=== PATIENT | female | born 1990 | race African-American/Black ===

== ENCOUNTER 2017-04-20 16:34 | Emergency (ER) | END 2017-04-20 17:10 | disposition left against medical advice (07) ==

== ENCOUNTER 2018-07-29 11:39 | Emergency (ER) | payer OTHER ==
[~2018-07-29] VITALS: Wt 90.0 kg
[2018-07-29] MEDS ORDERED: SOD CHLORIDE 0.9% 1,000 ML IV STA (12:13)
[2018-07-29] MEDS ORDERED: LORAZEPAM 2 MG INJ IV ONE (12:30)
[2018-07-29 15:12] VITALS: BP 113/67; PULSE 97; RESP 20
--- NOTE | 2018-07-29 15:24 | ERD ---
ER Documentation Chief Complaint Chief Complaint SOB,NOT ABLE TO WALK,SHAKING, REPORTED FF MEDS X 5 DAYS HPI Patient is a 27-year-old female with depression who presents with "a breakout on her whole body". The patient is stuttering and is difficult to understand. Please note the history and physical exam is limited secondary to the patient's anxiety. Upon review of old medical records the patient one previous visit to the ER in March of last year. Review of the emergency department information exchange system shows visits to 4 separate emergency departments for a total of 9 visits over the past 1 year. She does have a primary doctor. Patient reports methamphetamine use 4 days ago. ROS All systems reviewed and are negative except as per history of present illness. Allergies Allergies: Coded Allergies: No Known Allergy (Unverified , 04/20/17) PMhx/Soc Medical and Surgical Hx: pt denies Surgical Hx History of Surgery: No Anesthesia Reaction: No Hx Neurological Disorder: Yes (epilepsy) Hx Respiratory Disorders: No Hx Cardiac Disorders: No Hx Psychiatric Problems: No Hx Miscellaneous Medical Probl: No Hx Alcohol Use: Yes (12+ shots last night) Hx Substance Use: Yes (meth) Hx Tobacco Use: Yes (1 1/2 pk daily) Smoking Status: Current every day smoker FmHx Family History: No diabetes Physical Exam Vitals Vital Signs Date Temp Pulse Resp B/P (MAP) Pulse Ox O2 O2 Flow FiO2 Time Delivery Rate 07/29/18 97 20 113/67 97 Room Air 15:12 (82) 07/29/18 115 12 149/96 95 Room Air 12:10 (113) 07/29/18 98.1 99 18 160/89 99 11:43 (112) Physical Exam Const: Anxious Head: Atraumatic Eyes: Normal Conjunctiva ENT: Normal External Ears, Nose and Mouth. Neck: Full range of motion. No meningismus. Resp: Clear to auscultation bilaterally Cardio: Regular rate and rhythm, no murmurs Abd: Soft, non tender, non distended. Normal bowel sounds Skin: No rashes seen Back: No midline or flank tenderness Ext: No cyanosis, or edema Neur: Awake and stuttering Psych: Anxious Result Diagram: 07/29/18 1230 07/29/18 1230 Results 24 hrs Laboratory Tests Test 07/29/18 12:30 White Blood Count 5.3 10^3/ul Red Blood Count 3.83 10^6/ul Hemoglobin 11.9 g/dl Hematocrit 35.5 % Mean Corpuscular Volume 92.7 fl Mean Corpuscular Hemoglobin 31.1 pg Mean Corpuscular Hemoglobin Concent 33.5 g/dl Red Cell Distribution Width 13.5 % Platelet Count 322 10^3/UL Mean Platelet Volume 10.3 fl Immature Granulocytes % 0.400 % Neutrophils % 59.9 % Lymphocytes % 27.5 % Monocytes % 8.8 % Eosinophils % 3.0 % Basophils % 0.4 % Nucleated Red Blood Cells % 0.0 /100WBC Immature Granulocytes # 0.020 10^3/ul Neutrophils # 3.2 10^3/ul Lymphocytes # 1.5 10^3/ul Monocytes # 0.5 10^3/ul Eosinophils # 0.2 10^3/ul Basophils # 0.0 10^3/ul Nucleated Red Blood Cells # 0.0 10^3/ul Sodium Level 144 mmol/L Potassium Level 3.9 mmol/L Chloride Level 108 mmol/L Carbon Dioxide Level 25 mmol/L Anion Gap 11 Blood Urea Nitrogen 13 mg/dl Creatinine 0.76 mg/dl Est Glomerular Filtrat Rate mL/min > 60 mL/min Glucose Level 134 mg/dl Calcium Level 9.8 mg/dl Total Bilirubin 0.6 mg/dl Direct Bilirubin 0.00 mg/dl Indirect Bilirubin 0.6 mg/dl Aspartate Amino Transf (AST/SGOT) 29 IU/L Alanine Aminotransferase (ALT/SGPT) 44 IU/L Alkaline Phosphatase 71 IU/L Total Protein 7.3 g/dl Albumin 4.4 g/dl Globulin 2.90 g/dl Albumin/Globulin Ratio 1.51 Lipase 205 U/L Serum HCG, Qualitative NEGATIVE Current Medications Medications Dose Sig/Saranya Start Time Status Last (Trade) Ordered Route PRN Stop Time Admin Dose Reason Admin Sodium 1,000 ml @ Q1H STAT 07/29/18 DC 07/29/18 Chloride 1,000 mls/hr IV 12:13 07/29/18 12:52 13:12 Lorazepam 1 mg ONCE ONCE 07/29/18 DC 07/29/18 (Ativan) IV 12:30 07/29/18 12:52 12:31 Procedures/MDM Smoking Cessation Therapy: Pt. was lectured for greater than 3 minutes on the health risks of continued smoking and the benefits of cessation. Patient is a 27-year-old female who presents saying that she has a rash. I do not see any rash present on her body at this time. I believe her symptoms are related to panic attack and likely drug use. The patient will be discharged as her laboratory studies are normal. She was given Ativan. She can return for any worsening symptoms. Departure Diagnosis: Primary Impression: Panic attack Additional Impression: Methamphetamine abuse Condition: Fair Patient Instructions: Panic Attack Referrals: Your doctor Additional Instructions: Call your primary care doctor TOMORROW for an appointment during the next 1-2 days.See the doctor sooner or return here if your condition worsens before your appointment time. JUAN DIEGO FRANCO MD Jul 29, 2018 15:24
== END 2018-07-29 15:13 | disposition home or self-care (01) ==
LOC: E/R 11:39
DX: F41.0 Panic disorder [episodic paroxysmal anxiety] (principal); F15.90 Other stimulant use, unspecified, uncomplicated; F17.210 Nicotine dependence, cigarettes, uncomplicated
CPT/HCPCS: 36415; 80053; 83690; 84703; 85025; 96374; J2060; J7030; Z7502; Z7610

== ENCOUNTER 2018-09-28 23:57 | Emergency (ER) | payer SELFPAY | END 2018-09-29 00:08 | disposition left against medical advice (07) | LOC: E/R 23:57 | DX: Z53.21 Procedure and treatment not carried out due to patient leaving prior to being seen by health care provider (principal) ==